=== PATIENT | female | born 1970 | race Caucasian/White ===

== ENCOUNTER 2017-05-02 16:27 | Inpatient (IN) | payer BC ==
[~2017-05-02] VITALS: Ht 157.5 cm; Wt 78.5 kg
[~2017-05-02 16:27] MED LIST: ATORVASTATIN CA10 MG PO; FLEXERIL10 MG PO; HYDROCODON-ACE1 EAC7 PO; KOMBIGLYZE XR1 EAC1 PO; LAMOTRIGINE100 MG PO; MOTRIN600 MG PO; NAPROSYN500 MG PO; NORTRIPTYLINE H10 MG PO; OMEPRAZOLE-BIC1 EAC1 PO; TIZANIDINE HCL4 MG PO; VESICARE10 MG PO; WARFARIN SODIUM5 MG PO
[2017-05-02 16:37] LABS: BASOPHIL COUNT 0.1 K/uL (0-0.1); EOSINOPHIL (%) 1.6 % (0-5); EOSINOPHIL COUNT 0.2 K/uL (0-0.3); HEMATOCRIT 36.9 % (36.0-46.0); IMMATURE GRANULOCYTE (%) 0.9 % (0.0-0.7); IMMATURE GRANULOCYTE COUNT 0.1 K/uL; INSTRUMENT ABS NEUTROPHIL CT 10.2 K/uL; LYMPHOCYTE COUNT 1.6 K/uL (1.0-2.8); MCH 29.1 PG (29.0-34.0); MCHC 33.1 G/DL (30.0-36.0); MCV 88.1 FL (83-99); MEAN PLAT.VOLUME 9.8 uM^3 (9.5-12.4); MONOCYTE (%) 5.3 % (3-12); MONOCYTE COUNT 0.7 K/uL (0-0.8); NEUTROPHIL (%) 79.7 % (45-76); NEUTROPHIL COUNT 10.2 K/uL (1.8-6.4); PLATELET COUNT 277 K/uL (156-360); RBC DIS.WIDTH-CV 12.7 % (11.8-14.6); RBC DIS.WIDTH-SD 41.3 % (39-53); RED BLOOD COUNT 4.19 M/uL (3.80-5.20); WHITE BLOOD COUNT 12.8 K/uL (4.1-10.2)
[2017-05-02 16:49] LABS: AMYLASE 47 IU/L (1-118); CHLORIDE 103 mEq/L (99-109); POTASSIUM 3.6 mEq/L (3.7-5.4); SODIUM 138 mEq/L (136-147)
[2017-05-02 16:51] LABS: GLUCOSE 102 mg/dL (70-99)
[2017-05-02 16:52] LABS: ANION GAP 11 MEQ/L (2-14)
[2017-05-02 16:54] LABS: SERUM ETHYL ALCOHOL < 10 mg/dL
[2017-05-02 16:55] LABS: GFR ESTIMATE (CALCULATED) > 59 mL/min/
[2017-05-02 16:56] LABS: UREA NITROGEN (BUN) 10 mg/dL (9-23)
[2017-05-02 16:58] LABS: LIPASE 34 U/L (1.0-51.0)
[2017-05-02 17:04] LABS: QUANTITATIVE HCG < 4.0 MIU/ML
[2017-05-02] MEDS ORDERED: FLEXERIL10 MG PO (18:43)
[2017-05-02] MEDS ORDERED: MYRBETRIQ25 MG PO (18:44)
[2017-05-02] MEDS ORDERED: ELAVIL10 MG PO (18:47)
[2017-05-02] MEDS ORDERED: PERCOCET 10/1 TABLET PO (18:48)
[2017-05-02] MEDS ORDERED: PLAQUENIL200 MG PO (18:49)
[2017-05-02] MEDS ORDERED: MOBIC7.5 MG PO (19:01)
[2017-05-02] MEDS ORDERED: JANUVIA100 MG PO (19:03)
[2017-05-02] MEDS ORDERED: EXCEDRIN EXTRA1 EACH PO (19:04)
[2017-05-02 20:44] LABS: INTER. NORMALIZED RATIO 3.5
[2017-05-02 21:25] LABS: ADD MIUA? NO; BILIRUBIN NEGATIVE; BLOOD NEGATIVE; COLOR YELLOW ((YELLOW)); GLUCOSE (STRIP) NEGATIVE; KETONES NEGATIVE; LEUKOCYTES NEGATIVE; NITRITE NEGATIVE; PROTEIN (STRIP) NEGATIVE; UCUL ADDED? NO; UROBILINOGEN 0.2 MG/DL (0.2-1.0)
[2017-05-02 21:31] LABS: AMPHETAMINE NEGATIVE (500 ng/mL); BARBITURATES NEGATIVE (200 ng/mL); BENZODIAZEPINES NEGATIVE (150 ng/mL); COCAINE NEGATIVE (150 ng/mL); INTERNAL CONTROLS VALID? YES; METHADONE NEGATIVE (200 ng/mL); METHAMPHETAMINE NEGATIVE (500 ng/mL); OPIATES (MORPHINE) PRESUMPTIVE POSITIVE (100 ng/mL); OXYCODONE NEGATIVE (100 ng/mL); PHENCYCLIDINE NEGATIVE (25 ng/mL); PROPOXYPHENE NEGATIVE (300 ng/mL); THC CANNABINOIDS NEGATIVE (50 ng/mL); TRICYCLIC ANTIDEPRESSANTS PRESUMPTIVE POSITIVE (300 ng/mL)
[2017-05-02 21:32] LABS: ADD MEDTOX COMMENT Y
[2017-05-02 21:39] LABS: SPECIFIC GRAVITY 1.056 (1.000-1.030)
[2017-05-02 22:00] VITALS: BP 120/71
[2017-05-02 22:07] VITALS: BP 120/71
[2017-05-02 23:33] VITALS: BP 111/71
[2017-05-03 04:33] VITALS: BP 105/62
[2017-05-03 07:18] VITALS: BP 101/65
[2017-05-03 07:20] LABS: INTER. NORMALIZED RATIO 4.2; PROTHROMBIN TIME 48.7 SEC (10.2-12.9)
[2017-05-03 07:46] LABS: ANION GAP 9 MEQ/L (2-14); CHLORIDE 103 MEQ/L (99-109); GFR ESTIMATE (CALCULATED) > 59 mL/min/; GLUCOSE 142 mg/dL (70-99); POTASSIUM 3.5 MEQ/L (3.7-5.4); SAMPLE HEMOLYSIS CHECK 0; SAMPLE ICTERIC CHECK 0; SAMPLE LIPEMIA CHECK 0; SODIUM 138 MEQ/L (136-147); UREA NITROGEN (BUN) 5 mg/dL (9-23)
[2017-05-03 11:41] VITALS: BP 103/56
[2017-05-03 15:33] VITALS: BP 110/66
[2017-05-03 23:24] VITALS: BP 96/55
[2017-05-04 07:36] VITALS: BP 101/70
[2017-05-04 16:22] VITALS: BP 105/66
[2017-05-04 17:34] LABS: INTER. NORMALIZED RATIO 2.1
[2017-05-04 21:17] VITALS: BP 112/74
[2017-05-04 23:20] VITALS: BP 109/63
[2017-05-05 06:10] LABS: INTER. NORMALIZED RATIO 1.8; PROTHROMBIN TIME 19.8 SEC (10.2-12.9)
[2017-05-05 07:40] VITALS: BP 94/54
[2017-05-05 15:24] VITALS: BP 96/59
[2017-05-05 23:53] VITALS: BP 111/74
[2017-05-06 07:19] VITALS: BP 96/64
[2017-05-06 07:34] LABS: INTER. NORMALIZED RATIO 1.8; PROTHROMBIN TIME 20.5 SEC (10.2-12.9)
[2017-05-06 16:03] VITALS: BP 121/76
[2017-05-07 00:37] VITALS: BP 118/75
[2017-05-07 06:58] LABS: INTER. NORMALIZED RATIO 2.1; PROTHROMBIN TIME 23.6 SEC (10.2-12.9)
[2017-05-07 08:07] VITALS: BP 100/59
[2017-05-07 16:07] VITALS: BP 109/71
[2017-05-07 23:38] VITALS: BP 117/74
[2017-05-08 06:20] LABS: INTER. NORMALIZED RATIO 2.3
[2017-05-08 07:16] VITALS: BP 96/53
[2017-05-08] MEDS ORDERED: PERCOCET 10/1 TABLET PO (11:17)
== END 2017-05-08 14:33 | disposition home health service (06) | DRG 552 ==
LOC: TRA 16:27 → EDOF 19:57 → 3EAST 19:57 → ENRESERV 20:02 → 3EAST 21:35
PROVIDERS: Emergency Medicine; Family Medicine; Internal Medicine
DX: S22.080A Wedge compression fracture of T11-T12 vertebra, initial encounter for closed fracture (principal); S32.010A Wedge compression fracture of first lumbar vertebra, initial encounter for closed fracture; D68.61 Antiphospholipid syndrome; E11.9 Type 2 diabetes mellitus without complications; E78.5 Hyperlipidemia, unspecified; G89.29 Other chronic pain; E87.6 Hypokalemia; K21.9 Gastro-esophageal reflux disease without esophagitis; M47.816 Spondylosis without myelopathy or radiculopathy, lumbar region; W17.89XA Other fall from one level to another, initial encounter; G40.909 Epilepsy, unspecified, not intractable, without status epilepticus; M46.96 Unspecified inflammatory spondylopathy, lumbar region; N28.1 Cyst of kidney, acquired; M51.36 Other intervertebral disc degeneration, lumbar region; S81.801A Unspecified open wound, right lower leg, initial encounter; Z79.01 Long term (current) use of anticoagulants; Z86.73 Personal history of transient ischemic attack (TIA), and cerebral infarction without residual deficits; Z98.51 Tubal ligation status; Z90.49 Acquired absence of other specified parts of digestive tract; Y92.009 Unspecified place in unspecified non-institutional (private) residence as the place of occurrence of the external cause; Z79.84 Long term (current) use of oral hypoglycemic drugs
CPT/HCPCS: 70450; 71010; 71260; 72020; 72070; 72125; 72129; 72132; 72146; 72148; 72170; 73610; 74177; 80048; 81003; 82150; 83690; 84702; 84999; 85025; 85610; 86850; 86900; 86901; 93971; 99281; 99285; C9113; G0480; J1170; J1650; J2270; J2405; J3010; J7030